=== PATIENT | female | born 1925 | race Caucasian/White ===

== ENCOUNTER 2016-10-04 14:58 | Inpatient (IN) | payer OTHER ==
[~2016-10-04] VITALS: Ht 157.5 cm; Wt 44.5 kg
[2016-10-04 15:57] LABS: PLATELET COUNT 210 x10^3mcL (130-400); RED CELL DISTRIBUTION WIDTH 14.4 % (11.5-14.5)
[2016-10-04 15:59] LABS: microscopic required? YES; urine erythrocyte NEGATIVE (NEGATIVE)
[2016-10-04 16:05] LABS: BASOPHIL % 0 % (0-2)
[2016-10-04 16:11] LABS: ALKALINE PHOSPHATASE 102 U/L (46-116); ALT/SGPT 20 U/L (14-59); AST/SGOT 23 U/L (15-37); BILIRUBIN TOTAL 0.7 mg/dL (0.20-1.00); CARBON DIOXIDE 26.6 mmol/L (21-32); CHLORIDE SERUM 102 mmol/L (98-107); CHOLESTEROL 138 mg/dL (<200); CHOLESTEROL/HDL RATIO 2.4; CREATININE SERUM 1.2 mg/dL (0.6-1.0); GLUCOSE SERUM 165 mg/dL (74-106); HDL CHOLESTEROL 58 mg/dL (40-60); LIPASE 86 IU/L (73-393); POTASSIUM SERUM 3.3 mmol/L (3.5-5.1); SODIUM SERUM 142 mmol/L (136-145); TOTAL PROTEIN, SERUM 7.2 g/dL (6.4-8.2); TRIGLYCERIDES 76 mg/dL (<150)
[2016-10-04 16:16] LABS: ALBUMIN 3.2 g/dL (3.4-5.0)
[2016-10-04 16:20] LABS: T3 TOTAL 0.59 ng/mL
[2016-10-04 16:38] LABS: FREE T4 1.38 ng/dL (0.76-1.46); FREE THYROXINE INDEX 3.4 ug/dL (1.4-4.5); T4(THYROXINE) 8.4 ug/dL (4.7-13.3)
[2016-10-04 20:57] LABS: MAGNESIUM 1.7 mg/dL (1.8-2.4)
[2016-10-04 22:01] VITALS: BP 122/65
[2016-10-04 22:05] VITALS: Ht 157.5 cm; Wt 44.5 kg
[2016-10-05 05:59] VITALS: BP 150/69
[2016-10-05 06:40] LABS: PLATELET COUNT 179 x10^3mcL (130-400); RED CELL DISTRIBUTION WIDTH 14.2 % (11.5-14.5)
[2016-10-05 06:42] LABS: BASOPHIL % 0 % (0-2)
[2016-10-05 06:53] LABS: CALCIUM 8.9 mg/dL (8.5-10.1); CARBON DIOXIDE 28.2 mmol/L (21-32); CHLORIDE SERUM 106 mmol/L (98-107); CREATININE SERUM 0.9 mg/dL (0.6-1.0); GLUCOSE SERUM 95 mg/dL (74-106); MAGNESIUM 2.4 mg/dL (1.8-2.4); PHOSPHOROUS 4.2 mg/dL (2.5-4.9); POTASSIUM SERUM 3.8 mmol/L (3.5-5.1); SODIUM SERUM 143 mmol/L (136-145)
[2016-10-05 10:19] VITALS: BP 164/70
[2016-10-05 14:50] VITALS: BP 132/42
[2016-10-05 17:03] VITALS: BP 155/78
[2016-10-05 21:26] VITALS: BP 153/57
[2016-10-06 05:40] VITALS: BP 130/68
[2016-10-06 09:15] VITALS: BP 158/85
[2016-10-06 13:22] VITALS: BP 109/53
[2016-10-06 17:44] VITALS: BP 97/46
[2016-10-06 17:45] VITALS: BP 152/74
[2016-10-06 21:27] VITALS: BP 138/69
[2016-10-07 05:40] VITALS: BP 150/72
[2016-10-07 07:03] LABS: BASOPHIL % 0.2 % (0-2); PLATELET COUNT 178 x10^3mcL (130-400); RED CELL DISTRIBUTION WIDTH 14.4 % (11.5-14.5)
[2016-10-07 07:23] LABS: CALCIUM 8.2 mg/dL (8.5-10.1); CHLORIDE SERUM 102 mmol/L (98-107); CREATININE SERUM 0.9 mg/dL (0.6-1.0); GLUCOSE SERUM 102 mg/dL (74-106); MAGNESIUM 1.6 mg/dL (1.8-2.4); PHOSPHOROUS 3.9 mg/dL (2.5-4.9); POTASSIUM SERUM 3.6 mmol/L (3.5-5.1); SODIUM SERUM 137 mmol/L (136-145)
[2016-10-07 07:55] VITALS: BP 150/84
[2016-10-07 09:40] VITALS: BP 122/64
[2016-10-07] MEDS ORDERED: IPRATROPIUM BROM3 M2 HHN ×2 (13:38)
[2016-10-07] MEDS ORDERED: COR3 PO (13:38)
[2016-10-07] MEDS ORDERED: ECO81 PO (13:39)
[2016-10-07] MEDS ORDERED: ZES10 PO (13:39)
[2016-10-07 13:40] VITALS: BP 122/64
[2016-10-07] MEDS ORDERED: LEVAQUIN750 MG PO (14:00)
[2016-10-07] MEDS ORDERED: CLINDAMYCIN HC300 MG PO (14:00)
[2016-10-07] MEDS ORDERED: LAC PO (14:01)
[2016-10-07 14:15] VITALS: BP 112/52
== END 2016-10-07 17:20 | disposition short-term general hospital (02) | DRG 177 ==
LOC: ED 14:58 → DU 20:11 → MU 10-07 09:34
PROVIDERS: Family Medicine; Specialist; ADMIT Family Medicine
DX: J69.0 Pneumonitis due to inhalation of food and vomit (principal); I50.43 Acute on chronic combined systolic (congestive) and diastolic (congestive) heart failure; N17.0 Acute kidney failure with tubular necrosis; G93.41 Metabolic encephalopathy; E44.0 Moderate protein-calorie malnutrition; Z68.1 Body mass index [BMI] 19.9 or less, adult; I48.91 Unspecified atrial fibrillation; E87.6 Hypokalemia; E83.42 Hypomagnesemia; E86.0 Dehydration; R80.8 Other proteinuria; D64.9 Anemia, unspecified; Z66 Do not resuscitate; G30.9 Alzheimer's disease, unspecified; F02.80 Dementia in other diseases classified elsewhere, unspecified severity, without behavioral disturbance, psychotic disturbance, mood disturbance, and anxiety; I25.10 Atherosclerotic heart disease of native coronary artery without angina pectoris; Z95.1 Presence of aortocoronary bypass graft
CPT/HCPCS: 82962; 83880; 84439; 92610-GN; 94150; G0480; J1630; J1956; J2060; J3475; J3480; J3490; J7030; J7620; Q0092